=== PATIENT | male | born 1950 | race Caucasian/White ===

== ENCOUNTER → 2018-08-15 | Outpatient (CLI) | payer OTHER | LOC: M.RAD 11:33 | DX: J43.1 Panlobular emphysema (principal); I73.9 Peripheral vascular disease, unspecified; M54.6 Pain in thoracic spine; G89.29 Other chronic pain; I10 Essential (primary) hypertension; E78.5 Hyperlipidemia, unspecified; R07.9 Chest pain, unspecified ==

== ENCOUNTER → 2019-07-18 | Outpatient (CLI) | payer OTHER | LOC: M.RAD 14:28 | DX: M47.816 Spondylosis without myelopathy or radiculopathy, lumbar region (principal); M41.84 Other forms of scoliosis, thoracic region; W19.XXXA Unspecified fall, initial encounter ==

== ENCOUNTER → 2020-06-19 | Outpatient (CLI) | payer OTHER ==
[~2020-06-19] MED LIST: ALLEGRA ALLERG180 MG PO; FLEXERIL PO; LOVASTATIN 20 M20 MG PO; NORVASC 2.5 MG2.5 M1 PO
== END ==
LOC: M.PC 08:42
PROVIDERS: ATTEND Physical Medicine & Rehabilitation
DX: M54.5 Low back pain (principal)

== ENCOUNTER → 2020-08-05 | Outpatient (CLI) | payer OTHER | LOC: M.ULTRA 08:45 | PROVIDERS: ATTEND Internal Medicine | DX: K76.0 Fatty (change of) liver, not elsewhere classified (principal); R31.9 Hematuria, unspecified ==

== ENCOUNTER → 2020-08-26 | Outpatient (CLI) | payer OTHER | LOC: M.ULTRA 08-23 09:00 | PROVIDERS: ATTEND Internal Medicine | DX: R31.9 Hematuria, unspecified (principal) ==

== ENCOUNTER 2021-01-31 13:26 | Inpatient (IN) | payer OTHER ==
[~2021-01-31] VITALS: Ht 182.9 cm; Wt 125.1 kg
[2021-01-31 13:40] VITALS: BP 151/78
[2021-01-31 14:26] LABS: MCH 30.7 pg (26.0-34.0); MCV 87.7 fL (80.0-100.0); MPV 8.4 fl. (7.2-11.1); NUCLEATED RBCS 0 /100WBC; PLATELET COUNT* 253 thou/uL (150-400); RBC 4.56 mil/uL (4.50-6.00); RDW-CV 14.5 % (10.5-14.5); WBC 24.1 thou/uL (4.0-11.0)
[2021-01-31 14:32] LABS: URINE BLOOD 3+ (Negative); URINE COLOR YELLOW; URINE GLUCOSE-RANDOM NEGATIVE (Negative); URINE KETONES NEGATIVE (Negative); URINE LEUKOCYTES-REFLEX NEGATIVE (Negative); URINE NITRITE-REFLEX NEGATIVE (Negative); URINE PROTEIN 3+ (Negative); URINE SPECIFIC GRAVITY >= 1.030 (1.005-1.030)
[2021-01-31 14:36] LABS: CALCIUM 8.5 mg/dL (8.5-10.1); CREATININE 1.4 mg/dL (0.6-1.3); POTASSIUM 3.2 mmol/L (3.5-5.1)
[2021-01-31 14:37] LABS: ICTOTEST (BILI CONFIRMATORY) Negative (Negative); URINE BILIRUBIN 1+ (Negative); URINE CLARITY CLOUDY
[2021-01-31 14:46] LABS: ALBUMIN 3.2 g/dL (3.4-5.0); TOTAL BILIRUBIN 0.7 mg/dL (<0.1-1.0); TOTAL PROTEIN 7.5 g/dL (6.4-8.2)
[2021-01-31 14:47] LABS: BACTERIA-REFLEX None Seen /HPF (None Seen); CASTS None Seen /LPF (None Seen); CRYSTALS None Seen /LPF (None Seen); SQUAMOUS 0-3 Few /LPF (0-3); URINE RBC 0-2 Rare /HPF (0-2); URINE WBC-REFLEX None Seen /HPF (0-5)
[2021-01-31 14:51] LABS: ABSOLUTE EOSINOPHILS 0.2 thou/uL (0.0-0.7); ABSOLUTE LYMPHOCYTES 1.7 thou/uL (0.8-5.3); ABSOLUTE MONOCYTES 0.2 thou/uL (0.0-1.2); ABSOLUTE NEUTROPHILS 21.9 thou/uL (1.6-8.1); PLATELET ESTIMATE ADEQUATE
--- NOTE | 2021-01-31 15:57 | EKG ---
[place] [address] ELECTROCARDIOGRAM REPORT Name: RICARDODANIEL Room: [facility]#: [id number] Admission: 01/31/21 Attend Phys: Discharge: Date of : 52 Date of Service: 01/31/21 1422 Report #: [id number] THIS REPORT FOR: //name// [facility] ED Test Date: 2021-01-31 Test Time: 14:22:36 Pat Name: DANIEL SILVA Department: Room: Gender: Teletype Mechanic: [facility] : 1950 Requested By: Saúl Duff Order Number: [id number] MD: Humza Dubois Measurements Intervals Rousseau Rate: 97 P: 46 CO: 158 QRS: 8 QRSD: 91 T: 39 QT: 332 QTc: 422 Interpretive Statements Sinus rhythm Probable left atrial enlargement Low voltage, extremity leads Baseline wander in lead(s) I,aVR No previous ECG available for comparison Electronically Signed On 01-31-2021 15:57:09 CDT by Humza Dubois [email or web address] <ELECTRONICALLY SIGNED> By: Humza Dubois MD, [facility] 01/31/21 1557 1422 1422 Humza Dubois MD, [facility] /EPI
[2021-01-31 19:30] LABS: AMP/METHAMP Negative (Negative); BARBITURATES Negative (Negative); BENZODIAZEPINES Negative (Negative); COCAINE Negative (Negative); METHADONE Negative (Negative); OPIATES Negative (Negative); PCP Negative (Negative); THC Negative (Negative)
[2021-01-31 20:30] VITALS: BP 146/73; BP 152/80
[2021-01-31 20:44] VITALS: BP 146/73
--- NOTE | 2021-01-31 22:58 | NUR ---
PT ADMITTED TO ROOM 207 AT 2030. PT ADMITTED FOR DIAGNOSIS OF PNEUMONIA. PT ORIENTED TO CALL LIGHT, BED CONTROLS AND ROOM. PT INSTRUCTED NOT TO GET UP WITHOUT STAFF PRESENT DUE TO FALL X2 TODAY. FALL AGREEMENT SIGNED. CALL LIGHT IN REACH, PT DEMONSTRATES PROPER USE.
[2021-02-01 00:26] VITALS: BP 158/84
[2021-02-01 05:05] VITALS: BP 160/80
[2021-02-01 07:02] LABS: ABSOLUTE BASOPHILS 0.1 thou/uL (0.0-0.2); ABSOLUTE LYMPHOCYTES 0.5 thou/uL (0.8-5.3); ABSOLUTE MONOCYTES 0.3 thou/uL (0.0-1.2); ABSOLUTE NEUTROPHILS 12.3 thou/uL (1.6-8.1); BASOPHILS 0.4 %; HEMATOCRIT 38.3 % (42.0-52.0); HEMOGLOBIN 13.3 gm/dL (14.0-18.0); LYMPHOCYTES 3.8 %; MCH 30.5 pg (26.0-34.0); MCHC 34.8 g/dL (28.0-37.0); MCV 87.7 fL (80.0-100.0); MONOCYTES 2.4 %; NUCLEATED RBCS 0 /100WBC; PLATELET COUNT* 232 thou/uL (150-400); POLYS 93.4 %; RBC 4.37 mil/uL (4.50-6.00); RDW-CV 14.5 % (10.5-14.5); WBC 13.1 thou/uL (4.0-11.0)
[2021-02-01 07:24] LABS: ALBUMIN 2.6 g/dL (3.4-5.0); CALCIUM 8.2 mg/dL (8.5-10.1); CREATININE 1.1 mg/dL (0.6-1.3); POTASSIUM 3.3 mmol/L (3.5-5.1); TOTAL BILIRUBIN 0.5 mg/dL (<0.1-1.0); TOTAL PROTEIN 6.7 g/dL (6.4-8.2)
[2021-02-01 08:00] VITALS: BP 150/63; BP 165/73
[2021-02-01 12:00] VITALS: BP 130/82
[2021-02-01 16:00] VITALS: BP 139/89
[2021-02-01] MEDS ORDERED: LOVASTATIN 20 M20 MG PO (16:23)
[2021-02-01] MEDS ORDERED: TOPROL XL50 MG PO (16:24)
--- NOTE | 2021-02-01 19:47 | NUR ---
I ASSUMED CARE OF THE PATIENT AT 0700. HE IS ALERT AND ORIENTED X4 AND IS UP WITH SBA. BED IS IN THE LOW LOCKED POSITION AND CALL LIGHT IS IN REACH. HOURLY ROUNDING IS COMPLETED AND PATIENT NEEDS ARE MET. PAIN IS DENIED. PATIENT SLEEPS VERY WELL AND BED ALARM IS ON BECAUSE HE WAKES UP AND RISES QUICKLY. BLOOD GLUCOSE IS MONITORED. JANN IS AT THE BEDSIDE FOR A WHILE. HE SAID HE DOES NOT NEED A NICOTINE PATCH OF NOW. WILL CONTINUE TO MONITOR.
[2021-02-01 21:40] VITALS: BP 133/65
[2021-02-02] VITALS: BP 147/63
[2021-02-02 04:10] VITALS: BP 139/66
--- NOTE | 2021-02-02 05:21 | NUR ---
PT AO X4 LYING IN BED AT TIME OF ASSESSMENT. PT IS A BIT UNSTEADY ON FEET AND HAS A HX OF FALLING IN THE PAST FEW DAYS. BED ALARM ON FOR SAFETY. PT DENIES PAIN BUT HAS NON PRODUCTIVE COUGH AT THIS TIME, LUNGS ARE DIMINISHED THROUGHOUT ALL ROSE. PT STATES HE HAS NOT HAD A BM IN SEVERAL DAYS. HE IS UP STAND BY ASSIST TO THE TOILET TO VOID. PT NSR IN 80s BED ALARM ON FOR SAFETY
[2021-02-02 05:33] LABS: ALBUMIN 2.4 g/dL (3.4-5.0); CALCIUM 8.5 mg/dL (8.5-10.1); CREATININE 1.1 mg/dL (0.6-1.3); POTASSIUM 3.1 mmol/L (3.5-5.1); TOTAL BILIRUBIN 0.3 mg/dL (<0.1-1.0); TOTAL PROTEIN 6.8 g/dL (6.4-8.2)
[2021-02-02 05:41] LABS: ABSOLUTE LYMPHOCYTES 0.4 thou/uL (0.8-5.3); ABSOLUTE MONOCYTES 0.3 thou/uL (0.0-1.2); ABSOLUTE NEUTROPHILS 17.8 thou/uL (1.6-8.1); BASOPHILS 0.2 %; HEMATOCRIT 39.6 % (42.0-52.0); HEMOGLOBIN 13.6 gm/dL (14.0-18.0); LYMPHOCYTES 2.1 %; MCH 30.5 pg (26.0-34.0); MCHC 34.3 g/dL (28.0-37.0); MCV 88.7 fL (80.0-100.0); MONOCYTES 1.6 %; MPV 9.4 fl. (7.2-11.1); NUCLEATED RBCS 0 /100WBC; PLATELET COUNT* 292 thou/uL (150-400); POLYS 96.1 %; RBC 4.46 mil/uL (4.50-6.00); RDW-CV 14.6 % (10.5-14.5); WBC 18.5 thou/uL (4.0-11.0)
[2021-02-02 05:48] LABS: PREALBUMIN 10.4 mg/dL (18.0-35.7)
[2021-02-02 08:30] VITALS: BP 120/57
[2021-02-02] MEDS ORDERED: PROAIR HFA8.5 GM INH (13:28)
[2021-02-02] MEDS ORDERED: LEVOFLOXACIN750 MG PO (13:28)
[2021-02-02] MEDS ORDERED: PROTONIX40 M2 PO (13:28)
[2021-02-02] MEDS ORDERED: PREDNISONE 10 M10 MG PO (13:28)
[2021-02-02 16:35] VITALS: BP 130/57
--- NOTE | 2021-02-02 19:05 | NUR ---
I ASSUMED CARE OF THE PATIENT AT 0700. HE IS ALERT AND ORIENTED X4 AND IS UP SBA WITH A CANE IN THE ROOM. BED IS IN THE LOW LOCKED POISITION AND CALL LIGHT IS IN REACH. PAIN IS DENIED. HOURLY ROUNDING IS COMPLETED AND PATIENT NEEDS ARE MET. PATIENT D/C'D TO HOME WITH SIGNIFICANT OTHER TO HOME AT 1715. [facility] CALLED IN, D/C UNDERSTOOD AND FOLLOW UP EXPLAINED.
== END 2021-02-02 17:15 | disposition home or self-care (01) | DRG 871 ==
LOC: M.ERS 13:26 → M.TBA-ER 15:58 → M.2W 20:55
PROVIDERS: Emergency Medicine Emergency Medical Services; ADMIT Internal Medicine; ATTEND Internal Medicine
DX: A41.9 Sepsis, unspecified organism (principal); G92 Toxic encephalopathy; J15.6 Pneumonia due to other Gram-negative bacteria; N17.9 Acute kidney failure, unspecified; I13.0 Hypertensive heart and chronic kidney disease with heart failure and stage 1 through stage 4 chronic kidney disease, or unspecified chronic kidney disease; R06.03 Acute respiratory distress; I50.9 Heart failure, unspecified; N18.9 Chronic kidney disease, unspecified; F17.210 Nicotine dependence, cigarettes, uncomplicated; Z20.822 Contact with and (suspected) exposure to COVID-19; Z79.899 Other long term (current) drug therapy

== ENCOUNTER → 2021-02-24 | Outpatient (CLI) | payer OTHER ==
[~2021-02-24] MED LIST changes: +LEVOFLOXACIN750 MG PO; +PREDNISONE 10 M10 MG PO; +PROAIR HFA8.5 GM INH; +PROTONIX40 M2 PO; +TOPROL XL50 MG PO
== END ==
LOC: M.RAD 11:29
PROVIDERS: ATTEND Internal Medicine
DX: M54.2 Cervicalgia (principal); I10 Essential (primary) hypertension; Z87.01 Personal history of pneumonia (recurrent)

== ENCOUNTER → 2021-03-04 | Outpatient (CLI) | payer OTHER | LOC: M.ULTRA 10:24 | PROVIDERS: ATTEND Internal Medicine | DX: I65.23 Occlusion and stenosis of bilateral carotid arteries (principal); R01.1 Cardiac murmur, unspecified ==

== ENCOUNTER 2021-03-28 01:20 | Emergency (ER) | payer OTHER ==
[~2021-03-28] VITALS: Ht 182.9 cm; Wt 120.2 kg
[2021-03-28 01:57] LABS: ABSOLUTE BASOPHILS 0.2 thou/uL (0.0-0.2); ABSOLUTE EOSINOPHILS 0.4 thou/uL (0.0-0.7); ABSOLUTE MONOCYTES 0.9 thou/uL (0.0-1.2); ABSOLUTE NEUTROPHILS 9.5 thou/uL (1.6-8.1); BASOPHILS 1.2 %; EOSINOPHILS 3.1 %; HEMATOCRIT 44.7 % (42.0-52.0); LYMPHOCYTES 15.1 %; MCH 29.7 pg (26.0-34.0); MCHC 33.4 g/dL (28.0-37.0); MCV 88.9 fL (80.0-100.0); MPV 7.3 fl. (7.2-11.1); NUCLEATED RBCS 0 /100WBC; PLATELET COUNT* 452 thou/uL (150-400); POLYS 73.6 %; RBC 5.03 mil/uL (4.50-6.00); RDW-CV 14.7 % (10.5-14.5)
[2021-03-28 02:07] LABS: CALCIUM 8.5 mg/dL (8.5-10.1); CREATININE 0.9 mg/dL (0.6-1.3); POTASSIUM 3.9 mmol/L (3.5-5.1)
[2021-03-28 06:31] VITALS: BP 152/81
== END 2021-03-28 06:28 | disposition short-term general hospital (02) ==
LOC: M.ERS 01:20
PROVIDERS: Emergency Medicine
DX: J02.8 Acute pharyngitis due to other specified organisms (principal); Z20.822 Contact with and (suspected) exposure to COVID-19; J18.9 Pneumonia, unspecified organism; I10 Essential (primary) hypertension; F17.210 Nicotine dependence, cigarettes, uncomplicated; Z79.899 Other long term (current) drug therapy; Z79.51 Long term (current) use of inhaled steroids

== ENCOUNTER → 2021-04-11 | Outpatient (CLI) | payer OTHER | LOC: M.CT 07:49 | PROVIDERS: ATTEND Internal Medicine | DX: R91.8 Other nonspecific abnormal finding of lung field (principal); N62 Hypertrophy of breast; K76.0 Fatty (change of) liver, not elsewhere classified; M47.814 Spondylosis without myelopathy or radiculopathy, thoracic region; J18.9 Pneumonia, unspecified organism; R93.89 Abnormal findings on diagnostic imaging of other specified body structures ==

== ENCOUNTER → 2021-06-23 | Outpatient (CLI) | payer OTHER ==
[2021-06-23 09:33] LABS: ALBUMIN 3.5 g/dL (3.4-5.0); ALKALINE PHOSPHATASE 82 U/L (46-116); CHOLESTEROL 152 mg/dL (<200); DIRECT BILIRUBIN 0.1 mg/dL (<0.1-0.3); HDL CHOLESTEROL 41 mg/dL (>40); LDL CHOLESTEROL 63 mg/dL (<100); SGOT 20 U/L (15-37); SGPT 29 U/L (30-65); TC:HDL 3.7 Ratio (Not establshd); TOTAL BILIRUBIN 0.3 mg/dL (<0.1-1.0); TOTAL PROTEIN 7.1 g/dL (6.4-8.2); TRIGLYCERIDE 243 mg/dL (<150); VLDL 49 mg/dL (<40)
[2021-06-23 09:34] LABS: SERUM ASSESSMENT Clear
== END ==
LOC: M.LAB 09:07
PROVIDERS: ATTEND Internal Medicine
DX: E78.00 Pure hypercholesterolemia, unspecified (principal)